=== PATIENT | male | born 1995 | race Caucasian/White ===

== ENCOUNTER 2018-02-13 00:03 | Emergency (ER) | payer BC, OTHER ==
[2018-02-13 01:28] LABS: #Basophils 0.1 thou/uL (0.0-0.2); #Eosinphils 0.1 thou/uL (0.0-0.7); #Lymphocytes 1.5 thou/uL (1.20-3.40); #Monocytes 0.4 thou/uL (0.11-0.59); #Neutrophils 3.6 thou/uL (1.40-6.50); %Basophils 0.9 % (0.0-1.0); %Lymphocytes 26.4 % (21.0-51.0); %Monocytes 6.7 % (0.0-10.0); Hemoglobin 16.3 g/dL (14.0-18.0); Mean Corpuscular HGB CONC 35.9 g/dL (32.0-36.0); Mean Corpuscular Hemoglobin 30.6 pg (27.0-31.0); Mean Platelet Volume 7.1 fL (7.4-10.4); Platelet Count 278 thou/uL (130-400); RBC Distribution Width 11.6 % (11.5-14.5); Red Blood Cell (RBC) Count 5.32 mill/uL (4.70-6.10); White Blood Cell (WBC) Count 5.6 thou/uL (4.8-10.8)
[2018-02-13 01:51] LABS: ALT (SGPT) 44 U/L (8-55); AST (SGOT) 24 U/L (5-34); Albumin 4.3 g/dL (3.5-5.0); Alkaline Phosphatase 119 U/L (40-150); Anion Gap 12 mmol/L (10-20); BUN (Urea Nitrogen) 10 mg/dL (8.9-20.6); Bilirubin, Total 0.4 mg/dL (0.2-1.2); Calc. Creatinine Clearance 0 mL/min (70-130); Calcium 9.8 mg/dL (7.8-10.44); Carbon Dioxide 26 mmol/L (22-29); Chloride 106 mmol/L (98-107); Estimated GFR-MDRD Greater than 90; Globulin 3.2 g/dL (2.4-3.5); Glucose 103 mg/dL (70-105); Potassium 3.8 mmol/L (3.5-5.1); Protein, Total 7.5 g/dL (6.0-8.3); Sodium 140 mmol/L (136-145)
[2018-02-13 01:55] LABS: CKMB 1.6 ng/mL (0-6.6); Troponin I Less than 0.010 ng/mL (< 0.028)
--- NOTE | 2018-02-13 08:52 | RAD ---
TWO VIEWS OF THE CHEST: INDICATION: Tachycardia. IMPRESSION: No acute cardiopulmonary abnormality. The examination is not appreciably changed from a comparison d ated 04/04/08. POS: [facility]
== END 2018-02-13 04:25 | disposition home or self-care (01) ==
LOC: ERS 00:03
DX: R00.2 Palpitations (principal); F17.220 Nicotine dependence, chewing tobacco, uncomplicated; F41.9 Anxiety disorder, unspecified
CPT/HCPCS: 36415; 71046; 80053; 82553; 84484; 85025; 93005

== ENCOUNTER 2018-08-27 11:33 | Emergency (ER) | payer BC, SELFPAY ==
[2018-08-27] MEDS ORDERED: Lidocaine 1% (PF) 30 ML VIAL ONE (13:07)
[2018-08-27] MEDS ORDERED: Bacitracin Zinc 1 Packet ONE (13:48)
--- NOTE | 2018-08-27 14:58 | RAD ---
LEFT HAND 3 VIEWS: Date: 08/27/18 HISTORY: Hand injury. FINDINGS: There are no signs of fracture or dislocation. IMPRESSION: Negative left hand. POS: [facility]
== END 2018-08-27 14:34 | disposition home or self-care (01) ==
LOC: ERS 11:33
DX: S61.412A Laceration without foreign body of left hand, initial encounter (principal); F41.9 Anxiety disorder, unspecified; F17.220 Nicotine dependence, chewing tobacco, uncomplicated; W26.8XXA Contact with other sharp object(s), not elsewhere classified, initial encounter
CPT/HCPCS: 12001; J2001

== ENCOUNTER 2019-02-20 08:54 | Outpatient (CLI) | payer BC ==
--- NOTE | 2019-02-20 09:56 | RAD ---
RADIOGRAPH LEFT SHOULDER 3 VIEWS: Date: 02/20/19 HISTORY: 23-year-old male with left shoulder pain. FINDINGS: No fracture, dislocation, or subluxation. No high grade DJD at AC joint or glenohumeral joint. No rot ator cuff calcifications. IMPRESSION: Normal. POS: [facility]
== END 2019-02-20 08:55 | disposition home or self-care (01) ==
LOC: BICRAD 08:54
PROVIDERS: ATTEND Specialist
DX: M25.512 Pain in left shoulder (principal)